=== PATIENT | male | born 1950 | race Caucasian/White ===

== ENCOUNTER 2019-08-18 01:42 | Emergency (ER) | payer MEDICARE, BC ==
[2019-08-18 01:54] VITALS: BP 168/89; PULSE 71
[2019-08-18] MEDS ORDERED: Hydrocortisone/Neomycin/Polymyxin B Otic Susp 10 ML Bottle EARRT ONE (02:04)
--- NOTE | 2019-08-18 02:11 | EDM.PDOC ---
ED HPI GENERAL MEDICAL PROBLEM - General Chief Complaint: ENT Problem Stated Complaint: right ear pain bleeding possible something in ear Time Seen by Provider: 08/18/19 01:48 Source of Information: Reports: Patient History Limitations: Reports: No Limitations - History of Present Illness INITIAL COMMENTS - FREE TEXT/NARRATIVE: The patient is a 69-year-old male. On Monday he apparently was outside quite a bit and that evening when he went to bed he felt like something crawled into his right ear and it felt like he was scratching around. He did not notice it too much on Monday but then last night as he was sleeping he again noted some scratching in his ear and he took a Q-tip to try to probe it slightly and came back with some blood. He comes to the ER for evaluation. He says he thinks he might have a ticketed or something then it. Right Ear Pain Score (Numeric/FACES): 4 - Related Data Allergies Allergy/AdvReac Type Severity Reaction Status Date / Time No Known Allergies Allergy Verified 08/18/19 01:54 Home Meds: Home Meds Diltiazem [Cardizem CD] 08/18/19 [History] Famotidine 08/18/19 [History] Flecainide Acetate 08/18/19 [History] Rosuvastatin Calcium 08/18/19 [History] Past Medical History Cardiovascular History: Reports: High Cholesterol Social & Family History - Tobacco Use Smoking Status *Q: Never Smoker ED ROS ENT - Review of Systems Review Of Systems: See Below Constitutional: Denies: Fever, Chills HEENT: Reports: Other (As per HPI) Respiratory: Reports: No Symptoms Cardiovascular: Reports: No Symptoms Endocrine: Reports: No Symptoms GI/Abdominal: Reports: No Symptoms : Reports: No Symptoms Musculoskeletal: Reports: No Symptoms Skin: Reports: No Symptoms Neurological: Reports: No Symptoms Psychiatric: Reports: No Symptoms Hematologic/Lymphatic: Reports: No Symptoms ED EXAM, ENT - Physical Exam Exam: See Below Exam Limited By: No Limitations General Appearance: Alert, WD/WN, No Apparent Distress Eye Exam: Bilateral Eye: Normal Inspection Ears: Normal External Exam, Normal TMs, Other (The ear canal on the right has an abrasion from the Q-tip noted but there is no active bleeding. Up by the eardrum there is a tick noted it is not moving at this time.) Nose: Normal Inspection Mouth/Throat: Normal Inspection Head: Normocephalic Neck: Supple Respiratory/Chest: No Respiratory Distress Back: Full Range of Motion Extremities: Normal Inspection, Normal Range of Motion Neurological: Alert, Oriented Psychiatric: Normal Affect, Normal Mood Skin: Warm, Dry ED ENT PROCEDURES - Foreign Body Removal Indication:: There is a tic in the right ear canal next to the eardrum Consent Obtained: Other (No consent needed other than verbal, no incision needed.) Performing Doctor:: Wilton Madison [facility] Other Location Comment:: There is a tick in the right ear canal Anesthesia Type: None Findings: Using a pair of very small alligator clips I was able to reach into the right ear canal and was able to extract the tick with no difficulty. There was no additional trauma to the canal noted and the eardrum is intact. Complications: No Comments: The patient tolerated the procedure well. Course - Vital Signs Last Recorded V/S: Last Vital Signs Temp 97.5 F 08/18/19 01:51 Pulse 71 08/18/19 01:51 Resp 16 08/18/19 01:51 BP 168/89 H 08/18/19 01:51 Pulse Ox 100 08/18/19 01:51 - Orders/Labs/Meds Orders: Active Orders 24 hr Category Date Time Status Hydrocort/Neomycin/Polymyxin B [Cortisporin Otic Susp] Med 08/18/19 02:04 Once 0.5 ml EARRT ONETIME ONE Departure - Departure Time of Disposition: 02:11 Disposition: Home, Self-Care 01 Condition: Good Clinical Impression: Abrasion of right ear canal Qualifiers: Encounter type: initial encounter Qualified Code(s): S00.411A - Abrasion of right ear, initial encounter Acute foreign body of right ear canal Qualifiers: Encounter type: initial encounter Qualified Code(s): T16.1XXA - Foreign body in right ear, initial encounter - Discharge Information *PRESCRIPTION DRUG MONITORING PROGRAM REVIEWED*: Not Applicable *COPY OF PRESCRIPTION DRUG MONITORING REPORT IN PATIENT TATIANA: Not Applicable Instructions: Ear Foreign Body, [id number] Referrals: Reno Ann MD [Primary Care Provider] - Additional Instructions: Use the Cortisporin otic suspension 2 drops 3 times a day with a cotton plug for the next 3 days, realize it when you put the fluid in there if it drains out there might be some blood on it from the abrasion to the canal but that is normal, follow-up with your family doctor later this week for recheck to make sure there is good healing, return to the ER if needed Sepsis Event Note - Evaluation Sepsis Screening Result: No Definite Risk - Focused Exam Vital Signs: Vital Signs Temp Pulse Resp BP Pulse Ox 08/18/19 01:51 97.5 F 71 16 168/89 H 100 Date Exam was Performed: 08/18/19 Time Exam was Performed: 02:06 - My Orders Last 24 Hours: My Active Orders 08/18/19 02:04 Hydrocort/Neomycin/Polymyxin B [Cortisporin Otic Susp] 0.5 ml EARRT ONETIME ONE - Assessment/Plan Last 24 Hours: My Active Orders 08/18/19 02:04 Hydrocort/Neomycin/Polymyxin B [Cortisporin Otic Susp] 0.5 ml EARRT ONETIME ONE
== END 2019-08-18 02:15 | disposition home or self-care (01) ==
LOC: JD.ED 01:42
DX: T16.1XXA Foreign body in right ear, initial encounter (principal); E78.00 Pure hypercholesterolemia, unspecified; X58.XXXA Exposure to other specified factors, initial encounter
CPT/HCPCS: 69200; 99282; A9270; 99283

== ENCOUNTER 2019-09-04 06:19 | Emergency (ER) | payer MEDICARE, BC ==
--- NOTE | 2019-09-04 06:35 | EDM.PDOC ---
<Yuan Baez - Last Filed: 09/04/19 07:17> ED HPI GENERAL MEDICAL PROBLEM - General Chief Complaint: Syncope Stated Complaint: [facility] Time Seen by Provider: 09/04/19 06:25 - History of Present Illness INITIAL COMMENTS - FREE TEXT/NARRATIVE: 69-year-old male presents the emergency room with lightheadedness and what sounds like a syncopal episode. Patient woke up around 1:30 this morning he was a little lightheaded. He had an upset stomach took some Tums. He then went to the bathroom and had a BM. While sitting on the toilet his lightheadedness got worse he got up to wash his hands and then passed out. It took him a few minutes to get it back together he did get the attention of his that helped him up he went back to bed still felt lightheaded they figured it would get better. Shortly after this probably an hour he tried to have another BM thinking it would help he did not pass out this time but it did not help. Through the course the morning he had a couple other BMs that were unsuccessful. Patient is a significant past medical history of atrial fibrillation he is not on anticoagulation he does however take an aspirin daily. He is on flecainide and diltiazem. Patient denies any other cardiac history no history of strokes. The patient did try taking some Tums as he thought he had an upset stomach this did not help. And the patient does believe a lot of his symptoms with regards to this morning are related to his stomach. - Related Data Allergies Allergy/AdvReac Type Severity Reaction Status Date / Time No Known Allergies Allergy Verified 09/04/19 06:24 Home Meds: Home Meds Diltiazem [Cardizem CD] 120 mg PO DAILY 08/18/19 [History] Famotidine 20 mg PO ASDIRECTED PRN 08/18/19 [History] Flecainide Acetate 100 mg PO BID 08/18/19 [History] Rosuvastatin Calcium 10 mg PO PCDINNER 08/18/19 [History] Meclizine [Antivert] 25 mg PO Q6H PRN #30 tab 09/04/19 [Rx] Past Medical History HEENT History: Reports: Other (See Below) Other HEENT History: wears glasses Cardiovascular History: Reports: High Cholesterol Social & Family History - Tobacco Use Smoking Status *Q: Never Smoker - Recreational Drug Use Recreational Drug Use: No ED ROS GENERAL - Review of Systems Review Of Systems: See Below Constitutional: Denies: Fever, Chills, Weakness HEENT: Reports: No Symptoms Respiratory: Reports: No Symptoms Cardiovascular: Reports: No Symptoms Endocrine: Reports: No Symptoms GI/Abdominal: Reports: Nausea, Other (Feeling of stomach upset he has a history of gastroesophageal reflux disease this does not act like that.). Denies: Abdominal Pain, Black Stool, Bloody Stool, Vomiting : Reports: No Symptoms Musculoskeletal: Reports: No Symptoms Neurological: Reports: Dizziness, Syncope. Denies: Headache, Seizure Psychiatric: Reports: No Symptoms ED EXAM, GENERAL - Physical Exam Exam: See Below Exam Limited By: No Limitations General Appearance: Alert, No Apparent Distress, Other (He still feels a little lightheaded and a little nauseated) Eye Exam: Bilateral Eye: Normal Inspection Ears: Normal External Exam, Hearing Grossly Normal, Other (He has some dried blood in the right canal he had a tick removed from this year this last Monday) Nose: Normal Inspection, Normal Mucosa, No Blood Throat/Mouth: Normal Inspection, Normal Lips, Normal Teeth, Normal Gums, Normal Oropharynx, Normal Voice, No Airway Compromise Neck: Normal Inspection, Supple, Non-Tender, Full Range of Motion, Other (When I first palpated his neck he had some discomfort in the midline but this cannot be reproduced he is got a little bit of muscle tightness more so on the right side). No: Lymphadenopathy (L), Lymphadenopathy (R), Tender Lateral, Tender Midline, Thyromegaly Respiratory/Chest: No Respiratory Distress, Lungs Clear, Respiratory Distress Cardiovascular: Regular Rate, Rhythm, No Edema, No Murmur GI/Abdominal: Normal Bowel Sounds, Soft, Non-Tender Back Exam: Normal Inspection. No: CVA Tenderness (R), Muscle Spasm Extremities: Normal Inspection, Non-Tender, No Pedal Edema Neurological: Other (Groups in the extremities are equal and appropriate bilaterally cranial nerves II through XII grossly intact) Skin Exam: Warm, Dry, Intact Lymphatic: No Adenopathy EKG INTERPRETATION EKG Date: 09/04/19 Rhythm: NSR Rate (Beats/Min): 55 [place]: Other (Mild leftward axis) P-Wave: Present QRS: Other (Low voltage early transition) ST-T: Normal QT: Normal Comparison: NA - No Prior EKG Course - Vital Signs Last Recorded V/S: Last Vital Signs Temp 97.1 F 09/04/19 06:22 Pulse 54 L 09/04/19 06:22 Resp 16 09/04/19 06:22 BP 146/84 H 09/04/19 06:22 Pulse Ox 100 09/04/19 06:22 - Orders/Labs/Meds Orders: Active Orders 24 hr Category Date Time Status EKG Documentation Completion [RC] ASDIRECTED Care 09/04/19 06:26 Active EKG 12 Lead [EK] Stat Ther 09/04/19 06:26 Ordered Labs: Laboratory Tests 09/04/19 09/04/19 09/04/19 Range/Units 06:27 06:27 06:27 WBC 9.30 H (4.23-9.07) K/mm3 RBC 5.24 (4.63-6.08) M/mm3 Hgb 15.0 (13.7-17.5) gm/dl Hct 44.8 (40.1-51.0) % MCV 85.5 (79.0-92.2) fl MCH 28.6 (25.7-32.2) pg MCHC 33.5 (32.2-35.5) g/dl RDW Std Deviation 42.3 (35.1-43.9) fL Plt Count 214 (163-337) K/mm3 MPV 11.1 (9.4-12.3) fl Neut % (Auto) 74.1 H (34.0-67.9) % Lymph % (Auto) 18.3 L (21.8-53.1) % Benzie % (Auto) 6.2 (5.3-12.2) % Eos % (Auto) 1.2 (0.8-7.0) Baso % (Auto) 0.1 (0.1-1.2) % Neut # (Auto) 6.89 H (1.78-5.38) K/mm3 Lymph # (Auto) 1.70 (1.32-3.57) K/mm3 Benzie # (Auto) 0.58 (0.30-0.82) K/mm3 Eos # (Auto) 0.11 (0.04-0.54) K/mm3 Baso # (Auto) 0.01 (0.01-0.08) K/mm3 PT (9.7-12.0) SECONDS INR APTT (22-31) SECONDS Sodium 138 (136-145) mEq/L Potassium 4.4 (3.5-5.1) mEq/L Chloride 105 (98-107) mEq/L Carbon Dioxide 25 (21-32) mEq/L Anion Gap 12.4 (5-15) BUN 22 H (7-18) mg/dL Creatinine 1.6 H (0.7-1.3) mg/dL Est Cr Clr Drug Dosing 45.10 mL/min Estimated GFR (MDRD) 43 (>60) mL/min BUN/Creatinine Ratio 13.8 L (14-18) Glucose 141 H (83-115) mg/dL Calcium 9.2 (8.5-10.1) mg/dL Magnesium 2.1 (1.8-2.4) mg/dl Total Bilirubin 0.7 (0.2-1.0) mg/dL AST 22 (15-37) U/L ALT 24 (16-63) U/L Alkaline Phosphatase 73 (46-116) U/L Troponin I < 0.017 (0.00-0.056) ng/mL Total Protein 6.6 (6.4-8.2) g/dl Albumin 3.6 (3.4-5.0) g/dl Globulin 3.0 gm/dL Albumin/Globulin Ratio 1.2 (1-2) /13/ Range/Units 06:27 WBC (4.23-9.07) K/mm3 RBC (4.63-6.08) M/mm3 Hgb (13.7-17.5) gm/dl Hct (40.1-51.0) % MCV (79.0-92.2) fl MCH (25.7-32.2) pg MCHC (32.2-35.5) g/dl RDW Std Deviation (35.1-43.9) fL Plt Count (163-337) K/mm3 MPV (9.4-12.3) fl Neut % (Auto) (34.0-67.9) % Lymph % (Auto) (21.8-53.1) % Benzie % (Auto) (5.3-12.2) % Eos % (Auto) (0.8-7.0) Baso % (Auto) (0.1-1.2) % Neut # (Auto) (1.78-5.38) K/mm3 Lymph # (Auto) (1.32-3.57) K/mm3 Benzie # (Auto) (0.30-0.82) K/mm3 Eos # (Auto) (0.04-0.54) K/mm3 Baso # (Auto) (0.01-0.08) K/mm3 PT 10.6 (9.7-12.0) SECONDS INR 0.97 APTT 25 (22-31) SECONDS Sodium (136-145) mEq/L Potassium (3.5-5.1) mEq/L Chloride (98-107) mEq/L Carbon Dioxide (21-32) mEq/L Anion Gap (5-15) BUN (7-18) mg/dL Creatinine (0.7-1.3) mg/dL Est Cr Clr Drug Dosing mL/min Estimated GFR (MDRD) (>60) mL/min BUN/Creatinine Ratio (14-18) Glucose (83-115) mg/dL Calcium (8.5-10.1) mg/dL Magnesium (1.8-2.4) mg/dl Total Bilirubin (0.2-1.0) mg/dL AST (15-37) U/L ALT (16-63) U/L Alkaline Phosphatase (46-116) U/L Troponin I (0.00-0.056) ng/mL Total Protein (6.4-8.2) g/dl Albumin (3.4-5.0) g/dl Globulin gm/dL Albumin/Globulin Ratio (1-2) Meds: Medications Discontinued Medications Generic Name Dose Route Start Last Admin Trade Name Freq PRN Reason Stop Dose Admin Lorazepam 1 mg 09/04/19 08:14 09/04/19 08:19 Ativan IVPUSH 09/04/19 08:15 1 mg ONETIME ONE Administration Meclizine HCl 25 mg 09/04/19 07:53 09/04/19 08:06 Antivert PO 09/04/19 07:54 25 mg ONETIME ONE Administration Ondansetron HCl 4 mg 09/04/19 06:57 09/04/19 07:12 Zofran Odt PO 09/04/19 06:58 4 mg ONETIME ONE Administration - Re-Assessments/Exams Free Text/Narrative Re-Assessment/Exam: 09/04/19 07:17 Change of shift further evaluation disposition per Dr. Lynn. Departure - Departure Disposition: Home, Self-Care 01 Clinical Impression: Vertigo - Discharge Information Prescriptions: Meclizine [Antivert] 25 mg PO Q6H PRN #30 tab PRN Reason: Dizziness Referrals: Reno Ann MD [Primary Care Provider] - 1 Week Forms: ED Department Discharge Additional Instructions: Drink plenty of fluids. Take antivert every 6 hours as needed for dizziness. Follow up with physical therapy and your doctor. Please return if you are worse. Sepsis Event Note - Evaluation Sepsis Screening Result: No Definite Risk - Focused Exam Vital Signs: Vital Signs Temp Pulse Resp BP Pulse Ox 09/04/19 06:22 97.1 F 54 L 16 146/84 H 100 Date Exam was Performed: 09/04/19 Time Exam was Performed: 07:17 <Wilton Lynn - Last Filed: 09/04/19 10:01> Course - Re-Assessments/Exams Free Text/Narrative Re-Assessment/Exam: 09/04/19 07:[address] Baez. His EKG shows a sinus bradycardia with no acute changes. His CT shows nothing acute. The CXR and abdominal x-ray looks good. His WBC is up slightly at 9.3. His PT and PTT look good. His creatinine is elevated at 1.6. His glucose is elevated at 141. His troponin is negative. 09/04/19 09:54 The MRI of his brain shows senescent change. No acute diffusion abnormalities are seen. No cerebellopontine angle cistern mass is seen. Contents of the internal auditory canals appear unremarkable. 09/04/19 09:58 She feels a little better. I will get him some antivert and refer for PT. Departure - Departure Time of Disposition: 10:00 Condition: Good - Discharge Information *PRESCRIPTION DRUG MONITORING PROGRAM REVIEWED*: Not Applicable *COPY OF PRESCRIPTION DRUG MONITORING REPORT IN PATIENT TATIANA: Not Applicable Sepsis Event Note - Focused Exam Date Exam was Performed: 09/04/19 Time Exam was Performed: 09:58
[2019-09-04] MEDS ORDERED: Ondansetron 4 MG Tab.DIS PO ONE (06:57)
--- NOTE | 2019-09-04 07:21 | CT ---
Head CT Technique: Multiple axial sections through the brain were obtained. Intravenous contrast was not utilized. Comparison: No prior intracranial imaging is available. Findings: Ventricles along with basal cisterns and sulci over the convexities are mildly prominent. No abnormal parenchymal densities are seen. No evidence of intracranial hemorrhage. No midline shift or mass-effect is seen. Bone window settings were reviewed. Minimal areas of mucosal thickening are seen within the right ethmoid sinus. Small retention cyst is noted within the right maxillary sinus. No acute appearing finding is seen within the visualized paranasal sinuses. Visualized mastoid sinuses show nothing acute. No acute calvarial finding is seen. Impression: 1. Minimal sinus findings believed to be chronic. 2. Mild generalized atrophy. 3. No acute intracranial abnormality is appreciated. Diagnostic code #2 This report was dictated in MDT
--- NOTE | 2019-09-04 07:29 | CR ---
Chest: Frontal view of the chest was obtained. Comparison: No prior chest x-ray, prior chest CT study of 01/08/14 is available. Findings: Heart size and mediastinum are within normal limits. Lungs show no acute parenchymal change. Bony structures are grossly intact. Impression: 1. Nothing acute is seen on frontal chest x-ray. Diagnostic code #1 This report was dictated in MDT
--- NOTE | 2019-09-04 07:29 | CR ---
Abdomen: Supine view of the abdomen was obtained. Comparison: No prior abdominal imaging. Scattered gas within small bowel and colon is seen which appears within normal limits. Joint space narrowing is noted within the right hip. No abnormal calcifications or discrete soft tissue abnormality is seen. Impression: 1. Nothing acute is seen on supine abdominal x-ray. Diagnostic code #2 This report was dictated in MDT
[2019-09-04] MEDS ORDERED: LORazepam 2 MG/ML SDV IVPUSH ONE (08:14)
--- NOTE | 2019-09-04 09:44 | MR ---
MRI brain Technique: T1 sagittal; T1, T2, FLAIR and diffusion axial; thin T2 gradient echo axial images through the brain stem; gradient echo coronal images were obtained as well as T1 weighted coronal images. Comparison: Prior head CT study of 09/04/19. Findings: Ventricles along with basal cisterns and sulci over the convexities are mildly prominent. Contents of the internal auditory canals appear within normal limits. No cerebellopontine angle cistern mass is appreciated. Normal signal void is seen within the major cerebral arteries within the skull base. Scattered areas of increased signal within the subcortical and periventricular white matter. These findings are most likely due to small vessel ischemic demyelination change. No acute diffusion abnormalities are appreciated. Impression: 1. Senescent change as described above. 2. No acute diffusion abnormalities are seen. 3. No cerebellopontine angle cistern mass is seen. Contents of the internal auditory canals appear unremarkable. Diagnostic code #2 This report was dictated in MDT
[2019-09-04 10:31] VITALS: BP 125/67; PULSE 64
== END 2019-09-04 10:15 | disposition home or self-care (01) ==
LOC: JD.ED 06:19
DX: R42 Dizziness and giddiness (principal); E78.00 Pure hypercholesterolemia, unspecified; Z79.899 Other long term (current) drug therapy
CPT/HCPCS: 36415; 70450; 70551; 71045; 74018; 80053; 83735; 84484; 85025; 85610; 85730; 93005; 96374; 99285; A9270; J2060

== ENCOUNTER 2021-09-02 07:04 | Day surgery (SDC) | payer MEDICARE, BC ==
[~2021-09-02 07:04] MED LIST: Lactated Ringers 1,000 ML IV SCH; Lidocaine 1%/Sod Bicarbonate in NS 8.4% 1 ML Syringe IDERM PRN; Sodium Chloride 0.9% 10 ML Syringe FLUSH PRN; Sodium Chloride 0.9% 10 ML Syringe FLUSH SCH
[2021-09-02] MEDS ORDERED: Lidocaine 1% 4 ML ONE (07:06)
[2021-09-02] MEDS ORDERED: Propofol 200 MG/20 ML SDV ONE ×2 (07:06→08:10)
[2021-09-02] MEDS ORDERED: fentaNYL 100 MCG/2 ML SDV ONE (07:34)
[2021-09-02 09:41] VITALS: BP 125/82; PULSE 66
== END 2021-09-02 09:25 | disposition home or self-care (01) ==
LOC: JD.SDS 07:04
PROVIDERS: ATTEND Surgery
DX: Z12.11 Encounter for screening for malignant neoplasm of colon (principal); D12.0 Benign neoplasm of cecum; K64.8 Other hemorrhoids; K44.9 Diaphragmatic hernia without obstruction or gangrene; K31.89 Other diseases of stomach and duodenum; I78.1 Nevus, non-neoplastic; I13.0 Hypertensive heart and chronic kidney disease with heart failure and stage 1 through stage 4 chronic kidney disease, or unspecified chronic kidney disease; I50.30 Unspecified diastolic (congestive) heart failure; F17.210 Nicotine dependence, cigarettes, uncomplicated; K21.9 Gastro-esophageal reflux disease without esophagitis; E78.00 Pure hypercholesterolemia, unspecified; N18.9 Chronic kidney disease, unspecified; I48.0 Paroxysmal atrial fibrillation; Z80.0 Family history of malignant neoplasm of digestive organs; Z98.890 Other specified postprocedural states; Z79.82 Long term (current) use of aspirin; Z79.899 Other long term (current) drug therapy
CPT/HCPCS: 43239; 45385; J2704; J3010; J7120; 00813; 99100

== ENCOUNTER → 2022-02-07 | Day surgery (SDC) | payer MEDICARE, BC ==
[~2022-02-07] MED LIST changes: +Acetaminophen 325 MG Tab ONE; +EPINEPHrine 1 MG/ML SDV ONE; +Ketorolac 30 MG/ML SDV ONE; -Lactated Ringers 1,000 ML IV SCH; -Lidocaine 1%/Sod Bicarbonate in NS 8.4% 1 ML Syringe IDERM PRN; +Midazolam 1 MG/ML 2 ML SDV ONE; +Morphine 8 MG, EPINEPHrine 0.3 MG, Cefuroxime 750 MG, Ketorolac 30 MG, Sodium Chloride ... ONE; +Ondansetron 4 MG/2 ML SDV ONE; +Phenylephrine HCl In 0.9% NaCl 1 MG/10 ML Vial ONE; +Pregabalin 25 MG Cap ONE; +Propofol 200 MG/20 ML SDV ONE; +Ropivacaine 0.5% 5 MG/ML 30 ML SDV ONE; -Sodium Chloride 0.9% 10 ML Syringe FLUSH PRN; -Sodium Chloride 0.9% 10 ML Syringe FLUSH SCH; +Vancomycin 1 GM SDV ONE; +ceFAZolin 2 GM Vial ONE; +ePHEDrine 50 MG/ML SDV ONE; +fentaNYL 100 MCG/2 ML SDV ONE; +oxyCODONE 5 MG Tab ONE; +oxyCODONE ER 10 MG TAB.ER ONE
== END ==
LOC: JD.SDS 06:00
PROVIDERS: ATTEND Orthopaedic Surgery
DX: M17.0 Bilateral primary osteoarthritis of knee (principal); I48.91 Unspecified atrial fibrillation; K21.9 Gastro-esophageal reflux disease without esophagitis; N20.0 Calculus of kidney; Z79.899 Other long term (current) drug therapy; Z79.82 Long term (current) use of aspirin; Z98.890 Other specified postprocedural states
CPT/HCPCS: 0055T; 27447; 73560; 97110; 97116; 97161; J0171; J0690; J0697; J1885; J2250; J2270; J2405; J2704; J2795; J3010; J3370; 01402; 64450; 76942; C1713; C1776

== ENCOUNTER 2023-02-13 08:55 | Day surgery (SDC) | payer MEDICARE, BC ==
[~2023-02-13 08:55] MED LIST changes: -Acetaminophen 325 MG Tab ONE; -EPINEPHrine 1 MG/ML SDV ONE; -Ketorolac 30 MG/ML SDV ONE; +Lactated Ringers 1,000 ML IV SCH; -Midazolam 1 MG/ML 2 ML SDV ONE; -Morphine 8 MG, EPINEPHrine 0.3 MG, Cefuroxime 750 MG, Ketorolac 30 MG, Sodium Chloride ... ONE; -Ondansetron 4 MG/2 ML SDV ONE; -Phenylephrine HCl In 0.9% NaCl 1 MG/10 ML Vial ONE; -Pregabalin 25 MG Cap ONE; -Propofol 200 MG/20 ML SDV ONE; -Ropivacaine 0.5% 5 MG/ML 30 ML SDV ONE; +Sodium Chloride 0.9% 10 ML Syringe FLUSH PRN; +Sodium Chloride 0.9% 10 ML Syringe FLUSH SCH; -Vancomycin 1 GM SDV ONE; -ceFAZolin 2 GM Vial ONE; -ePHEDrine 50 MG/ML SDV ONE; -fentaNYL 100 MCG/2 ML SDV ONE; -oxyCODONE 5 MG Tab ONE; -oxyCODONE ER 10 MG TAB.ER ONE
[2023-02-13] MEDS ORDERED: oxyCODONE ER 10 MG TAB.ER PO ONE (09:00)
[2023-02-13] MEDS ORDERED: Pregabalin 25 MG Cap PO ONE (09:00)
[2023-02-13] MEDS ORDERED: Acetaminophen 325 MG Tab PO ONE (09:00)
[2023-02-13] MEDS ORDERED: Propofol 200 MG/20 ML SDV ONE ×2 (10:04→11:41)
[2023-02-13] MEDS ORDERED: Lidocaine 2% 5 ML SDV ONE (10:04)
[2023-02-13] MEDS ORDERED: ceFAZolin 2 GM Vial ONE (10:04)
[2023-02-13] MEDS ORDERED: fentaNYL 100 MCG/2 ML SDV ONE (10:04)
[2023-02-13] MEDS ORDERED: EPINEPHrine 1 MG/ML SDV ONE (10:23)
[2023-02-13] MEDS ORDERED: ePHEDrine 50 MG/ML SDV ONE (11:08)
[2023-02-13] MEDS: Vancomycin 1 GM SDV ONE ×2 (11:20→12:01)
[2023-02-13] MEDS: Tranexamic Acid 1,000 MG/10 ML Vial ONE ×2 (11:20→12:01)
[2023-02-13] MEDS: Morphine 8 MG, EPINEPHrine 0.3 MG, Cefuroxime 750 MG, Ketorolac 30 MG, Sodium Chloride ... PRN ×10 (11:21→11:54)
[2023-02-13] MEDS ORDERED: Lactated Ringers 1,000 ML ONE (12:12)
[2023-02-13] MEDS ORDERED: Ropivacaine 0.5% 5 MG/ML 30 ML SDV ONE (12:42)
[2023-02-13 15:20] VITALS: BP 140/70; PULSE 65
[2023-02-13] MEDS ORDERED: oxyCODONE 5 MG Tab PO SCH (15:35)
== END 2023-02-13 15:40 | disposition home or self-care (01) ==
LOC: JD.SDS 08:55
PROVIDERS: ATTEND Orthopaedic Surgery
DX: M17.11 Unilateral primary osteoarthritis, right knee (principal); N40.0 Benign prostatic hyperplasia without lower urinary tract symptoms; K21.9 Gastro-esophageal reflux disease without esophagitis; E78.00 Pure hypercholesterolemia, unspecified; I48.0 Paroxysmal atrial fibrillation; N18.31 Chronic kidney disease, stage 3a; Z79.82 Long term (current) use of aspirin; Z79.899 Other long term (current) drug therapy
CPT/HCPCS: 0055T; 27447; 64447; 73560; 97116; 97161; A9270; C1713; C1776; J0171; J0690; J0697; J1885; J2270; J2704; J2795; J3010; J3370; J7030; J7120; 01402; 99100; J3490